=== PATIENT | female | born 1960 | race Caucasian/White ===

== ENCOUNTER 2017-09-16 07:06 | Outpatient (CLI) | payer OTHER | END 2017-09-16 07:15 | disposition home or self-care (01) | LOC: TOM 07:06 | DX: Z93.3 Colostomy status (principal); K56.50 Intestinal adhesions [bands], unspecified as to partial versus complete obstruction; C56.9 Malignant neoplasm of unspecified ovary; Z85.43 Personal history of malignant neoplasm of ovary ==